=== PATIENT | female | born 1990 | race Caucasian/White ===

== ENCOUNTER 2024-04-15 18:55 | Emergency (ER) | payer BC, SELFPAY ==
[2024-04-15 19:13] VITALS: BP 132/67; PULSE 69; RESP 18; TEMP 36.9; O2SAT 98; BMI 36.5
--- NOTE | 2024-04-15 19:27 | ED_ITS ---
HPI - General Adult General Chief complaint: Chest Pain Stated complaint: Up resp issues, chest pains Time Seen by Provider: 04/15/24 19:24 History of Present Illness HPI narrative: 33-year-old female presenting to the ER today for left chest pain below her left breath as well as breathing trouble. Symptoms have been present for the past 5 days, since Friday. They started when she was with her family. They are all smokers and sometimes secondhand Smoke triggers problems for her. According to the records from [facility] past medical history includes elevated BMI, osteoarthritis, hip dysplasia, anxiety, depression. She had a history of trial and asthma that was related to 2nd hand smoke exposure in her home but has not had trouble with that is that she has been adult. also has previous prescription for albuterol inhaler three years ago during COV but has not needed 1 since. She is a nonsmoker. She went to visit her family on Friday for the . All 3 of them smoked around her. While she was with them she started to feel inflammation in her throat and lungs. Since Friday she has also developed sharp pain that hurts with breathing along her left lower rib edge and the bottom of her sternum. It has been present ever since then and is not going away. She is not really short of breath but it does hurt to breathe. She is not coughing. No fever. Sometimes she gets nauseous. No vomiting. She came to the ER tonight on the advice of her puppy trainer because her athletic trainers had pulmonary emboli. She is also worried that because her symptoms are not getting better yet. She does not have any swelling or pain in her legs. No recent travel or immobilization. No history of DVT or PE. She has an IUD but is not on control pills. No known family history of PE or DVT or hypercoagulability. Related Data Home Medications ?Medication ?Instructions ?Recorded ?Confirmed No Known Home Medications 04/15/24 04/15/24 Allergies Allergy/AdvReac Type Severity Reaction Status Date / Time amoxicillin Allergy Intermediate Verified 04/15/24 19:18 [facility] Social History Smoking Status: Never smoker Do you use any of these nicotine containing products: None Second hand tobacco smoke exposure: No How often do you have a drink containing alcohol: never How often do you have six or more drinks on one occasion: Never AUDIT-C Alcohol total score: 0 Non-prescribed substance use: denies use service: No Exam Narrative: Exam Narrative: Constitutional: Appears well-developed and well-nourished. Alert. Pleasant and Conversant. Non toxic. HENT: Head: Atraumatic. Nose: Nose normal. Mouth/Throat: Oral mucosa is clear and moist. no trismus. Pharynx normal. Eyes: Conjunctivae normal. EOM normal. Pupils equal, round, and reactive to light. No scleral icterus. Neck: Normal range of motion. Neck supple. No tracheal deviation present. Cardiovascular: Normal rate, regular rhythm. No gallop. No friction rub. No murmur heard. Symmetric radial artery pulses Pulmonary/Chest: Effort normal. No stridor. No respiratory distress. No wheezes. No rales. No rhonchi . Marked tenderness along the lower medial ribs and xiphoid process. Also mild tenderness in the epigastrium. However her pain is clearly most prominent with palpation of the ribs . Abdominal: Soft. Bowel sounds normal. No distension. No mass. No right upper quadrant tenderness or Deleon sign. Very xiphoid upper epigastric mild tenderness. No rebound. No guarding. No HSM. Musculoskeletal: RUE: Normal range of motion. No tenderness. No deformity LUE: Normal range of motion. No tenderness. No deformity RLE: Normal range of motion. No edema. No tenderness. No deformity LLE: Normal range of motion. No edema. No tenderness. No deformity Neurological: Alert and oriented to person, place, and time. Normal strength. CN II-VII intact. No sensory deficit. GCS eye subscore is 4. GCS verbal subscore is 5. GCS motor subscore is 6. Normal coordination Skin: Skin is warm and dry. No rash noted. No pallor. Normal capillary refill. Psychiatric: Normal mood. Normal affect. Const: Vital Signs, click to edit/add: Vital Signs - 24 hr 04/15/24 19:13 04/15/24 21:26 Temperature 98.5 F Pulse Rate [Right Pulse Oximeter] 69 78 Respiratory Rate 18 16 Blood Pressure [Ri ght Upper Arm] 132/67 128/76 Pulse Oximetry 98 Oxygen Delivery Me thod Room Air Course Vital Signs Vital signs: Initial Vital Signs Temperature 98.5 F 04/15/24 19:13 Temperature Source Temporal Artery Scan 04/15/24 19:13 Pulse Rate 69 04/15/24 19:13 Pulse Rhythm Regular 04/15/24 19:13 Pulse Strength 3+ Normal 04/15/24 19:13 Respiratory Rate 18 04/15/24 19:13 Blood Pressure 132/67 04/15/24 19:13 Blood Pressure Mean 88 04/15/24 19:13 Blood Pressure Position Sitting 04/15/24 19:13 Pulse Oximetry 98 04/15/24 19:13 Oxygen Delivery Method Room Air 04/15/24 19:13 Vital Signs Temperature 98.5 F 04/15/24 19:13 Pulse Rate 69 04/15/24 19:13 Respiratory Rate 18 04/15/24 19:13 Blood Pressure 132/67 04/15/24 19:13 Pulse Oximetry 98 04/15/24 19:13 Oxygen Delivery Method Room Air 04/15/24 19:13 Temperature 98.5 F 04/15/24 19:13 Pulse Rate 78 04/15/24 21:26 Respiratory Rate 16 04/15/24 21:26 Blood Pressure 128/76 04/15/24 21:26 Pulse Oximetry 98 04/15/24 19:13 Oxygen Delivery Method Room Air 04/15/24 19:13 Medical Decision Making MDM Narrative Medical decision making narrative: This patient presents to the ER today for evaluation of chest pain affecting her left lower ribs and xiphoid below her bra line. Differential was broad. No signs of chest wall cellulitis, shingles, injury. No evidence of palpitations, syncope or other cardiac dysrhythmia. We considered possible ACS, however workup with EKG and troponin is negative. Patient declined medications here in the ER, so aspirin was not administered. HEART score is 1. Given time since onset of symptoms, I do not think the patient needs to be admitted for further sets of enzymes. EKG shows no evidence for pericarditis. Clinical presentation not suggestive of myocarditis. Chest x-ray shows no evidence for pneumonia, pneumothorax, pulmonary edema, pleural effusion, rib fracture, cardiomegaly. Mediastinum is normal on the x-ray. The patient has no ripping or tearing pain through to the back and has symmetric pulses on exam, no other acute neuro findings so I doubt aortic dissection. Risk of radiation and contrast exposure would outweigh the benefit of CT angiogram. We considered PE for this patient. Is overall low risk. Negative by PERC, so will hold off on D dimer or CTPA for now. No wheezing or bronchospasm to suggest COPD/asthma. With reasonable clinical confidence, I think the patient is safe for outpatient follow up. Discussed return precautions. Questions answered. Patient voices comfort with the plan. Lab Data Labs: Lab Results 04/15/24 Range/Units 20:03 WBC 7.57 (4.50-11.00) K/uL RBC 4.19 (4.00-5.20) m/uL Hgb 13.8 (12.0-16.0) gm/dL Hct 39.6 (33.0-51.0) % MCV 95 (80-100) fL MCH 33 (26-34) pg MCHC 35 (32-36) gm/dL RDW Coeff of [place] 11.3 L (11.5-15.5) % Plt Count 289 (140-440) K/uL Neut % (Auto) 46.6 (42.0-72.0) % Lymph % (Auto) 42.8 (20-44) % [place] % (Auto) 9.4 (0.0-11.0) % Eos % (Auto) 0.8 (0.0-7.0) % Baso % (Auto) 0.3 (0.0-3.0) % Neut # (Auto) 3.53 (1.7-7.0) K/uL Lymph # (Auto) 3.24 H (0.90-2.90) K/uL [place] # (Auto) 0.70 (0.00-0.90) K/UL Eos # (Auto) 0.06 (0.00-0.50) K/uL Baso # (Auto) 0.02 (0.00-0.30) K/uL Abs Immat Gran (auto) 0.01 (0.00-0.30) K/uL Imm/Tot Granulo (auto) 0.1 % Sodium 139 (135-149) mmol/L Potassium 3.8 (3.6-5.1) mmol/L Chloride 105 (96-114) mmol/L Carbon Dioxide 27 (20-32) mmol/L Anion Gap 7 (7-15) mEq/L BUN 22 (5-24) mg/dL Creatinine 0.8 (0.5-1.5) mg/dL Estimated Creat Clear 82.74 Estimated GFR 100 ml/min Glucose 92 (60-115) mg/dL Calcium 9.3 (8.4-10.6) mg/dL Total Bilirubin 0.3 (0.1-1.5) mg/dL AST 23 (12-35) U/L ALT 21 (4-35) U/L Alkaline Phosphatase 38 L (40-150) U/L Troponin I < 0.01 L (0.01-0.04) ng/mL Total Protein 7.6 (6.0-8.3) g/dL Albumin 4.6 (3.3-5.0) g/dL Lipase 58 (23-300) U/L HCG, Qual Negative (Negative) Imaging Data Chest x-ray: Attestation: I have reviewed the pertinent imaging results. My impression: Normal cardiac silhouette. Normal mediastinum. Clear lungs sahnks. No infiltrates. No pleural effusions. No visible rib fractures. Radiologist's impression: IMPRESSION: No acute cardiopulmonary abnormality. ECG Data Attestation: I personally reviewed and interpreted this ECG as follows: Interpretation: Normal sinus rhythm Rate: 64 HI: 116 QRS axis: Normal. No pathologic Q-waves. ST segment/T wave: No ST segment elevation depression QTc: 439 Discharge Plan Discharge Clinical Impression: Chest pain Patient Disposition: Home, Self-Care Condition: Stable Instructions: Chest Pain (DC), Costochondritis (DC) Additional Instructions: As we discussed so far the workup for your chest pain looks reassuring. No signs of heart attack, pneumonia, blood clot, heart infection, or other severe life-threatening cause. At this point time we suspect this is probably any in irritation of your chest wall or any injury to ribcage. This may be a condition with inflammation of the cartilage of her ribs called costochondritis. Often times this condition gets better if you can treated with nonsteroidal anti- inflammatories, such as ibuprofen 600 mg every 6 hours. I know that you generally do not like to take any medications, but your condition may get better if you treat it with ibuprofen. Monitor carefully if you have any worsening symptoms, come back to the ER right away to be rechecked. If you not substantially improved within 3-5 days, please see your doctor or recheck with the ER. Prescriptions: No Action No Known Home Medications Follow Up/Referrals: Provider,Not a Local [Primary Care Provider] - Stand Alone Forms: [employer] Info Instructions
--- NOTE | 2024-04-15 19:47 | CRLHL7_ITS ---
For Patients: As a result of the Century Cures Act, medical imaging exams and procedure reports are released immediately into your electronic medical record. You may view this report before your referring provider. If you have questions, please contact your health care provider. INDICATION: Chest pain. TECHNIQUE: Chest 2 views. COMPARISON: None. FINDINGS: Cardiovascular and mediastinum: Heart size is normal. Unremarkable mediastinum. Lungs and pleural spaces: Lungs are clear. No sign of infiltrate or mass. No sign of pleural effusion. No pneumothorax. Bones and soft tissues: No significant findings. IMPRESSION: No acute cardiopulmonary abnormality. Dictated by Deshaun Garcia MD @ 04/15/2024 9:56:07 PM (Electronically Signed)
[2024-04-15 20:12] LABS: Basophils Absolute Auto 0.02 K/uL (0.00-0.30); Basophils Percent Auto 0.3 % (0.0-3.0); Eosinophils Absolute Auto 0.06 K/uL (0.00-0.50); Eosinophils Percent Auto 0.8 % (0.0-7.0); Hematocrit 39.6 % (33.0-51.0); Hemoglobin* 13.8 gm/dL (12.0-16.0); Immature Granulocytes Abs Auto 0.01 K/uL (0.00-0.30); Immature Granulocytes Pct Auto 0.1 %; Lymphocytes Absolute Auto 3.24 K/uL (0.90-2.90); Lymphocytes Percent Auto 42.8 % (20-44); Mean Corpuscular HGB Conc 35 gm/dL (32-36); Mean Corpuscular Hemoglobin 33 pg (26-34); Mean Corpuscular Volume 95 fL (80-100); Monocytes Percent Auto 9.4 % (0.0-11.0); Neutrophils Absolute Auto 3.53 K/uL (1.7-7.0); Neutrophils Percent Auto 46.6 % (42.0-72.0); Platelet Count* 289 K/uL (140-440); RDW Coefficient of Variation % 11.3 % (11.5-15.5); Red Blood Count 4.19 m/uL (4.00-5.20); White Blood Count* 7.57 K/uL (4.50-11.00)
[2024-04-15 20:22] LABS: Slide Review Reflex No
[2024-04-15 20:34] LABS: Albumin* 4.6 g/dL (3.3-5.0); Chloride* 105 mmol/L (96-114); Potassium* 3.8 mmol/L (3.6-5.1); Sodium* 139 mmol/L (135-149)
[2024-04-15 20:36] LABS: Bilirubin Total* 0.3 mg/dL (0.1-1.5); Creatinine* 0.8 mg/dL (0.5-1.5); Est. Creatinine Clearance* 82.74; Estimated Glomerular Filt Rate 100 ml/min; HCG Qualitative Serum* Negative (Negative)
[2024-04-15 20:37] LABS: Alanine Aminotransferase* 21 U/L (4-35); Alkaline Phosphatase* 38 U/L (40-150); Anion Gap 7 mEq/L (7-15); Aspartate Amino Transferase* 23 U/L (12-35); Blood Urea Nitrogen* 22 mg/dL (5-24); Carbon Dioxide* 27 mmol/L (20-32); Glucose* 92 mg/dL (60-115); Lipase* 58 U/L (23-300); Total Protein* 7.6 g/dL (6.0-8.3)
[2024-04-15 20:38] LABS: Calcium* 9.3 mg/dL (8.4-10.6)
[2024-04-15 20:50] LABS: Troponin I* < 0.01 ng/mL (0.01-0.04)
[2024-04-15 21:26] VITALS: BP 128/76; PULSE 78; RESP 16
== END 2024-04-15 21:26 | disposition home or self-care (01) ==
PROVIDERS: Emergency Provider Emergency Medicine
DX: R07.9 Chest pain, unspecified (principal)
CPT/HCPCS: 36415; 71046; 80053; 83690; 84484; 84703; 85025; 99283; 99284